=== PATIENT | male | born 1970 | race Caucasian/White ===

== ENCOUNTER 2017-04-20 11:55 | Emergency (ER) | payer OTHER ==
[~2017-04-20] VITALS: Ht 180.3 cm; Wt 105.0 kg
[~2017-04-20 11:55] MED LIST: AMLO2.5T2 PO; ATOR40TA78 PO; CETI10TA18 PO; LISI1TAB7 PO; METF500T4 PO; OMEP-110 PO; OMEP40CA6 PO; OXYC1TAB7 PO
[2017-04-20 12:00] VITALS: BP 142/97
[2017-04-20 13:36] LABS: HIV 1&2 ANTIBODY SCREEN Nonreactive (Nonreactive); HIV-1 p24 ANTIGEN Nonreactive (Nonreactive)
== END 2017-04-20 13:31 | disposition home or self-care (01) ==
LOC: ED 12:19
DX: Z00.8 Encounter for other general examination (principal); Z57.9 Occupational exposure to unspecified risk factor; E11.9 Type 2 diabetes mellitus without complications; I10 Essential (primary) hypertension
CPT/HCPCS: 36415; 86703; 86704; 86706; 86708; 86803; 87340; 87899; 99284; G0435

== ENCOUNTER 2018-01-17 08:22 | Emergency (ER) | payer OTHER ==
[~2018-01-17] VITALS: Ht 180.3 cm; Wt 105.0 kg
[2018-01-17 09:49] VITALS: BP 134/80
== END 2018-01-17 10:46 | disposition home or self-care (01) ==
LOC: ED 09:16
DX: S82.51XA Displaced fracture of medial malleolus of right tibia, initial encounter for closed fracture (principal); X58.XXXA Exposure to other specified factors, initial encounter; Y93.89 Activity, other specified; Y99.8 Other external cause status; Y92.69 Other specified industrial and construction area as the place of occurrence of the external cause
CPT/HCPCS: 29515; 99284

== ENCOUNTER → 2018-03-08 | Outpatient (CLI) | payer OTHER | END | disposition home or self-care (01) | LOC: LAB 12:06 | PROVIDERS: ATTEND Internal Medicine Hematology & Oncology | DX: Z11.4 Encounter for screening for human immunodeficiency virus [HIV] (principal) | CPT/HCPCS: 36415; 87806; G0475 ==

== ENCOUNTER 2018-05-24 11:08 | Emergency (ER) | payer OTHER ==
[~2018-05-24] VITALS: Ht 180.3 cm; Wt 103.5 kg
[~2018-05-24 11:08] MED LIST changes: -FLUTICASONE PROP; -HYDR12.53 PO; -LISI-167 PO; -METO50TA82 PO
[2018-05-24 11:14] VITALS: BP 143/106
[2018-05-24] MEDS ORDERED: HYDR12.53 PO (13:00)
[2018-05-24] MEDS ORDERED: METO50TA82 PO (13:00)
== END 2018-05-24 13:51 | disposition home or self-care (01) ==
LOC: ED 13:48
DX: K40.91 Unilateral inguinal hernia, without obstruction or gangrene, recurrent (principal); I10 Essential (primary) hypertension; E11.9 Type 2 diabetes mellitus without complications; G47.30 Sleep apnea, unspecified; Z88.6 Allergy status to analgesic agent
CPT/HCPCS: 76857; 99284

== ENCOUNTER → 2018-05-24 | Outpatient (CLI) | payer OTHER ==
[~2018-05-24] MED LIST changes: +FLUTICASONE PROP; +HYDR12.53 PO; +LISI-167 PO; -METF500T4 PO; +METF500T5 PO; +METO50TA82 PO
[2018-05-24 11:13] LABS: BASOPHILS # (AUTO) 0.04 x10^3/uL (0-0.1); BASOPHILS % (AUTO) 1 % (0-1); EOSINOPHILS # (AUTO) 0.08 x10^3/uL (0-0.4); EOSINOPHILS % (AUTO) 2 % (1-7); LYMPHOCYTES # (AUTO) 1.66 x10^3/uL (1-3.4); LYMPHOCYTES % (AUTO) 30 % (22-44); MD NO; MEAN CORPUSCULAR HEMOGLOBIN 30.5 pg (27.5-34.5); MEAN CORPUSCULAR HGB CONC 33.9 g/dL (33.2-36.2); MEAN CORPUSCULAR VOLUME 89.9 fL (81-97); MEAN PLATELET VOLUME 7.7 fL (7.4-10.4); MONOCYTES # (AUTO) 0.53 x10^3/uL (0.2-0.8); MONOCYTES % (AUTO) 9 % (2-9); NEUTROPHILS # (AUTO) 3.32 x10^3/uL (1.8-6.8); NEUTROPHILS % (AUTO) 59 % (42-75); PLATELET COUNT 251 x10^3/uL (130-400); RED BLOOD COUNT 5.09 x10^6/uL (4.38-5.82); RED CELL DISTRIBUTION WIDTH 13.1 % (9.4-14.8)
[2018-05-24 11:25] LABS: ALBUMIN 3.9 g/dL (3.4-5.0); ANION GAP 6 mmol/L (5-15); CALCIUM 8.6 mg/dL (8.5-10.1); CHLORIDE 111 mmol/L (98-107); CHOLESTEROL, TOTAL 228 mg/dL (140-239); TRIGLYCERIDES 85 mg/dL (50-200); VLDL CHOLESTEROL 17 mg/dL (0-25)
[2018-05-24 11:52] LABS: % IRON SATURATION 28 % (20-55); ALANINE AMINOTRANSFERASE 49 U/L (12-78); ALKALINE PHOSPHATASE 96 U/L (45-117); BILIRUBIN,TOTAL 0.5 mg/dL (0.2-1.0); CHOL/HDL RATIO 5.4; CREATININE 0.96 mg/dL (0.7-1.3); FOLATE LEVEL 14.4 ng/mL (3.1-17.5); FREE T4 (FREE THYROXINE) 1.04 ng/dL (0.76-1.46); HDL CHOL % 18 % (26-37); HDL CHOLESTEROL (DIRECT) 42 mg/dL (40-60); IRON LEVEL 108 mcg/dL (65-175); LDL CHOLESTEROL,CALCULATED 169 mg/dL (54-169); TOTAL IRON BINDING CAPACITY 387 mcg/dL (250-450); TOTAL PROTEIN 7.5 g/dL (6.4-8.2)
[2018-05-24 12:24] LABS: HEMOGLOBIN A1C 6.4 % (4.2-6.3)
== END | disposition home or self-care (01) ==
LOC: LAB 10:57
PROVIDERS: ATTEND Nurse Practitioner Family
DX: I10 Essential (primary) hypertension (principal)
CPT/HCPCS: 36415; 80053; 80061; 82306; 82607; 82728; 82746; 83036; 83540; 83550; 84439; 84443; 85025

== ENCOUNTER 2018-06-23 08:43 | Day surgery (SDC) | payer OTHER ==
[~2018-06-23] VITALS: Ht 180.3 cm; Wt 104.5 kg
[~2018-06-23 08:43] MED LIST changes: +BUPIVACAINE/PF-EPI 0.5% 1:200K ONE; +FLUTICASONE PROP; +HYDR12.53 PO; +LISI-167 PO; +METO50TA82 PO
[2018-06-23] MEDS ORDERED: LACTATED RINGERS 1,000 ML IV SCH (08:53)
[2018-06-23 08:59] VITALS: BP 158/108
[2018-06-23] MEDS ORDERED: ONDANSETRON ODT 8 MG PO ONE (09:00)
[2018-06-23] MEDS ORDERED: ACETAMINOPHEN 500 MG TABLET PO ONE (09:00)
[2018-06-23] MEDS ORDERED: GABAPENTIN 300 MG CAPSULE PO ONE (09:00)
[2018-06-23] MEDS ORDERED: OXYcodone IR 5MG TABLET PO ONE (09:00)
[2018-06-23] MEDS ORDERED: MIDAZOLAM 1 MG/ML, 2ML ONE (10:45)
[2018-06-23] MEDS ORDERED: FENTANYL PF 250 MCG/5ML ONE (10:46)
[2018-06-23] MEDS ORDERED: CEFAZOLIN 1,000 MG ONE ×2 (11:10)
[2018-06-23] MEDS ORDERED: ROCURONIUM 10MG/ML,5ML ONE (11:10)
[2018-06-23] MEDS ORDERED: ONDANSETRON 2MG/ML, 2ML ONE (11:10)
[2018-06-23] MEDS ORDERED: PROPOFOL 10 MG/ML, 20ML ONE (11:10)
[2018-06-23] MEDS ORDERED: ALBUTEROL SULFATE 2.5 MG/3 ML NPPB PRN (11:30)
[2018-06-23] MEDS ORDERED: HYDROmorphone 1 MG/ML, 1ML IV PRN (11:30)
[2018-06-23] MEDS ORDERED: hydrALAzine 20 MG/ML, 1ML IV PRN (11:30)
[2018-06-23] MEDS ORDERED: METOPROLOL 1 MG/ML, 5ML IV PRN (11:30)
[2018-06-23] MEDS ORDERED: ONDANSETRON 2MG/ML, 2ML IV PRN (11:30)
[2018-06-23] MEDS ORDERED: LABETALOL 5MG/ML, 20ML IV PRN (11:30)
[2018-06-23] MEDS ORDERED: EPHEDRINE 50 MG/ML, 1ML IVPush PRN (11:30)
[2018-06-23] MEDS ORDERED: PROMETHAZINE 25 MG/ML, 1ML IV PRN (11:30)
[2018-06-23] MEDS ORDERED: MEPERIDINE/PF 25MG/0.5ML IVPush PRN (11:30)
[2018-06-23] MEDS ORDERED: OXYcodone 5 MG/5 ML ORAL.SOL UDC PO PRN (11:30)
[2018-06-23] MEDS ORDERED: NEOSTIGMINE 1 MG/ML, 10ML ONE (12:44)
[2018-06-23] MEDS ORDERED: GLYCOPYRROLATE 0.4 MG/2 ML, 2ML ONE (12:44)
[2018-06-23] MEDS ORDERED: FENTANYL PF 100 MCG/2ML ONE (13:05)
[2018-06-23] MEDS: FENTANYL PF 100 MCG/2ML IV PRN ×2 (13:07→13:15)
[2018-06-23] MEDS ORDERED: OXYcodone 5 MG/5 ML ORAL.SOL UDC ONE (13:21)
[2018-06-23] MEDS ORDERED: MEPERIDINE/PF 50 MG/ML ONE (13:26)
== END 2018-06-23 15:50 | disposition home or self-care (01) ==
LOC: OUT 08:43
PROVIDERS: ATTEND Surgery
DX: K40.91 Unilateral inguinal hernia, without obstruction or gangrene, recurrent (principal); K21.9 Gastro-esophageal reflux disease without esophagitis; I10 Essential (primary) hypertension; E66.9 Obesity, unspecified; Z88.6 Allergy status to analgesic agent
CPT/HCPCS: 49651; J0690; J2175; J2250; J2405; J2704; J2710; J3010; J7120; Q0162; S2900; C1781

== ENCOUNTER 2018-09-30 07:39 | Emergency (ER) | payer OTHER ==
[~2018-09-30] VITALS: Ht 180.3 cm; Wt 113.5 kg
[~2018-09-30 07:39] MED LIST changes: -BUPIVACAINE/PF-EPI 0.5% 1:200K ONE; +METF500T17 PO; -METF500T5 PO
[2018-09-30] MEDS ORDERED: BACITRACIN ZINC OINT 500U/GM, 0.9 GM ONE (08:39)
[2018-09-30 09:25] VITALS: BP 134/90
== END 2018-09-30 09:27 | disposition home or self-care (01) ==
LOC: ED 09:16
DX: S61.552A Open bite of left wrist, initial encounter (principal); S50.812A Abrasion of left forearm, initial encounter; S60.312A Abrasion of left thumb, initial encounter; I10 Essential (primary) hypertension; E11.9 Type 2 diabetes mellitus without complications; W50.3XXA Accidental bite by another person, initial encounter; Y93.89 Activity, other specified; Y92.69 Other specified industrial and construction area as the place of occurrence of the external cause; Y99.8 Other external cause status
CPT/HCPCS: 99283

== ENCOUNTER 2019-09-30 13:52 | Emergency (ER) | payer OTHER ==
[~2019-09-30] VITALS: Ht 180.3 cm; Wt 114.0 kg
[~2019-09-30 13:52] MED LIST changes: +HYDR12.517 PO; -HYDR12.53 PO; +LISI1TAB20 PO; -LISI1TAB7 PO; +OMEP40CA42 PO; -OMEP40CA6 PO
[2019-09-30 14:09] VITALS: BP 177/115
[2019-09-30] MEDS ORDERED: DEXAMETHASONE 4 MG TABLET PO ONE (15:30)
[2019-09-30] MEDS ORDERED: PROMETHAZINE/COD. 10MG/6.25MG/5 ML ORAL SOL PO ONE (15:30)
[2019-09-30] MEDS ORDERED: DEXAMETHASONE 4 MG TABLET ONE (15:52)
== END 2019-09-30 16:15 | disposition home or self-care (01) ==
LOC: ED 16:10
DX: J04.0 Acute laryngitis (principal); B97.89 Other viral agents as the cause of diseases classified elsewhere; I10 Essential (primary) hypertension; F17.210 Nicotine dependence, cigarettes, uncomplicated
CPT/HCPCS: 71045; 99283

== ENCOUNTER 2019-11-29 14:51 | Emergency (ER) | payer OTHER ==
[~2019-11-29] VITALS: Ht 180.3 cm; Wt 112.5 kg
[2019-11-29 14:56] VITALS: BP 147/111
--- NOTE | 2019-11-29 15:14 | NUR ---
SORE THROAT, HOARSE, PAIN, SINUS CONGESTION FOR A MONTH. IMPROVED FOR A WHILE AND THEN GOT WORSE.
== END 2019-11-29 15:24 | disposition home or self-care (01) ==
LOC: ED 15:13
DX: H65.01 Acute serous otitis media, right ear (principal); J00 Acute nasopharyngitis [common cold]; I10 Essential (primary) hypertension
CPT/HCPCS: 99283

== ENCOUNTER 2020-01-06 14:49 | Emergency (ER) | payer OTHER ==
[2020-01-06 14:52] VITALS: BP 163/97
[2020-01-06] MEDS ORDERED: ACETAMINOPHEN 500 MG TABLET ONE (15:22)
[2020-01-06 15:30] LABS: RAPID INFLUENZA A Negative (Negative); RAPID INFLUENZA B Negative (Negative)
[2020-01-06] MEDS ORDERED: ACETAMINOPHEN 500 MG TABLET PO ONE (15:30)
== END 2020-01-06 15:54 | disposition home or self-care (01) ==
LOC: ED 15:40
DX: J18.0 Bronchopneumonia, unspecified organism (principal); I10 Essential (primary) hypertension; E11.9 Type 2 diabetes mellitus without complications; R19.7 Diarrhea, unspecified; Z87.891 Personal history of nicotine dependence; Z90.89 Acquired absence of other organs
CPT/HCPCS: 71046; 87400; 99284

== ENCOUNTER 2020-05-05 07:22 | Outpatient (CLI) | payer OTHER ==
[2020-05-05 07:48] LABS: BASOPHILS # (AUTO) 0.04 x10^3/uL (0-0.1); BASOPHILS % (AUTO) 1 % (0-1); EOSINOPHILS # (AUTO) 0.13 x10^3/uL (0-0.4); EOSINOPHILS % (AUTO) 2 % (1-7); LYMPHOCYTES # (AUTO) 1.55 x10^3/uL (1-3.4); LYMPHOCYTES % (AUTO) 28 % (22-44); MD NO; MEAN CORPUSCULAR HEMOGLOBIN 31.4 pg (27.5-34.5); MEAN CORPUSCULAR HGB CONC 33.7 g/dL (33.2-36.2); MEAN CORPUSCULAR VOLUME 93.3 fL (81-97); MEAN PLATELET VOLUME 7.8 fL (7.4-10.4); MONOCYTES # (AUTO) 0.49 x10^3/uL (0.2-0.8); MONOCYTES % (AUTO) 9 % (2-9); NEUTROPHILS # (AUTO) 3.39 x10^3/uL (1.8-6.8); NEUTROPHILS % (AUTO) 61 % (42-75); PLATELET COUNT 248 x10^3/uL (130-400); RED BLOOD COUNT 4.78 x10^6/uL (4.38-5.82); RED CELL DISTRIBUTION WIDTH 12.1 % (9.4-14.8)
[2020-05-05 07:50] LABS: ALBUMIN 3.4 g/dL (3.4-5.0); CALCIUM 8.5 mg/dL (8.5-10.1); CHOLESTEROL, TOTAL 212 mg/dL (140-239); TOTAL IRON BINDING CAPACITY 331 mcg/dL (250-450)
[2020-05-05 08:08] LABS: ANION GAP 9 mmol/L (5-15); CHLORIDE 107 mmol/L (98-107)
[2020-05-05 08:17] LABS: % IRON SATURATION 25 % (20-55); ALANINE AMINOTRANSFERASE 35 U/L (12-78); ALKALINE PHOSPHATASE 88 U/L (45-117); BILIRUBIN,TOTAL 0.4 mg/dL (0.2-1.0); CHOL/HDL RATIO 5.9; CREATININE 0.89 mg/dL (0.7-1.3); HDL CHOL % 17 % (26-37); HDL CHOLESTEROL (DIRECT) 36 mg/dL (40-60); IRON LEVEL 82 mcg/dL (65-175); LDL CHOLESTEROL,CALCULATED 137 mg/dL (54-169); LDL/HDL RATIO 3.8 (0.5-3.0); PREALBUMIN 20.8 mg/dL (20.0-40.0); TOTAL PROTEIN 7.1 g/dL (6.4-8.2); TRIGLYCERIDES 197 mg/dL (50-200); VLDL CHOLESTEROL 39 mg/dL (0-25)
[2020-05-05 08:23] LABS: FOLATE LEVEL > 20.0 ng/mL (3.1-17.5)
== END 2020-05-05 23:59 | disposition home or self-care (01) ==
LOC: LAB 07:22
PROVIDERS: ATTEND Physician Assistant
DX: E11.9 Type 2 diabetes mellitus without complications (principal); E78.5 Hyperlipidemia, unspecified; E55.9 Vitamin D deficiency, unspecified; E63.9 Nutritional deficiency, unspecified; E56.9 Vitamin deficiency, unspecified; K90.9 Intestinal malabsorption, unspecified; Z98.84 Bariatric surgery status
CPT/HCPCS: 36415; 80053; 80061; 82306; 82607; 82728; 82746; 83036; 83540; 83550; 84134; 84425; 85025

== ENCOUNTER → 2021-02-02 | Outpatient (CLI) | payer OTHER ==
[2021-02-02 07:23] LABS: BASOPHILS % (AUTO) 1 % (0-1); EOSINOPHILS % (AUTO) 2 % (1-7); LYMPHOCYTES % (AUTO) 26 % (22-44); MD NO; MEAN CORPUSCULAR HEMOGLOBIN 31.1 pg (27.5-34.5); MEAN CORPUSCULAR HGB CONC 33.9 g/dL (33.2-36.2); MEAN PLATELET VOLUME 7.8 fL (7.4-10.4); MONOCYTES % (AUTO) 9 % (2-9); NEUTROPHILS % (AUTO) 62 % (42-75); PLATELET COUNT 249 x10^3/uL (130-400); RED BLOOD COUNT 4.81 x10^6/uL (4.38-5.82)
[2021-02-02 07:34] LABS: ALBUMIN 3.6 g/dL (3.4-5.0); ANION GAP 6 mmol/L (5-15); CALCIUM 8.4 mg/dL (8.5-10.1); CHLORIDE 107 mmol/L (98-107); CHOLESTEROL, TOTAL 228 mg/dL (140-239); TRIGLYCERIDES 303 mg/dL (50-200); VLDL CHOLESTEROL 61 mg/dL (0-25)
[2021-02-02 08:01] LABS: % IRON SATURATION 29 % (20-55); ALANINE AMINOTRANSFERASE 59 U/L (12-78); ALKALINE PHOSPHATASE 90 U/L (45-117); BILIRUBIN,TOTAL 0.4 mg/dL (0.2-1.0); CHOL/HDL RATIO 7.1; CREATININE 0.98 mg/dL (0.7-1.3); HDL CHOL % 14 % (26-37); HDL CHOLESTEROL (DIRECT) 32 mg/dL (40-60); IRON LEVEL 101 mcg/dL (65-175); LDL CHOLESTEROL,CALCULATED 135 mg/dL (54-169); LDL/HDL RATIO 4.2 (0.5-3.0); PREALBUMIN 23.2 mg/dL (20.0-40.0); TOTAL IRON BINDING CAPACITY 351 mcg/dL (250-450); TOTAL PROTEIN 7.3 g/dL (6.4-8.2)
[2021-02-02 08:05] LABS: FOLATE LEVEL > 20.0 ng/mL (3.1-17.5)
== END | disposition home or self-care (01) ==
LOC: LAB 07:02
PROVIDERS: ATTEND Physician Assistant
DX: E55.9 Vitamin D deficiency, unspecified (principal); E63.9 Nutritional deficiency, unspecified; E56.9 Vitamin deficiency, unspecified; E78.5 Hyperlipidemia, unspecified; K90.9 Intestinal malabsorption, unspecified; Z98.84 Bariatric surgery status
CPT/HCPCS: 36415; 80053; 80061; 82306; 82607; 82728; 82746; 83036; 83540; 83550; 83970; 84134; 84425; 85025

== ENCOUNTER 2021-04-28 19:04 | Emergency (ER) | payer OTHER ==
[~2021-04-28] VITALS: Ht 180.3 cm; Wt 114.5 kg
[~2021-04-28 19:04] MED LIST changes: -OMEP40CA42 PO; +OMEP40CA8 PO
[2021-04-28 19:14] VITALS: BP 154/100
--- NOTE | 2021-04-28 19:31 | NUR ---
pt ambulatory to room from triage.
--- NOTE | 2021-04-28 19:58 | NUR ---
PT STATES HE LEFT WORK AND DEVELOPED L GROIN PAIN, RAD TO LLQ. DENIES ANY HEMATURIA. PT STATES HES HAD HERNIA REPAIR IN PAST & FEELS THE SAME. PT CHANGING. WILL CTM.
== END 2021-04-28 21:05 | disposition home or self-care (01) ==
LOC: ED 19:34
DX: N43.3 Hydrocele, unspecified (principal); M25.511 Pain in right shoulder; I10 Essential (primary) hypertension; E11.9 Type 2 diabetes mellitus without complications; Z87.891 Personal history of nicotine dependence; Z88.6 Allergy status to analgesic agent; Z90.89 Acquired absence of other organs
CPT/HCPCS: 76870; 99284

== ENCOUNTER → 2021-06-04 | Outpatient (CLI) | payer OTHER | END | disposition home or self-care (01) | LOC: RAD 07:52 | PROVIDERS: ATTEND Physician Assistant Surgical | DX: M51.16 Intervertebral disc disorders with radiculopathy, lumbar region (principal); M53.3 Sacrococcygeal disorders, not elsewhere classified; M41.86 Other forms of scoliosis, lumbar region | CPT/HCPCS: 72110 ==

== ENCOUNTER → 2021-07-03 | Outpatient (CLI) | payer OTHER ==
[~2021-07-03] MED LIST changes: +OMNIPAQUE 350 MG/ML, 150 ML BOTTLE ONE
== END | disposition home or self-care (01) ==
LOC: RAD 07:48
PROVIDERS: ATTEND Physician Assistant
DX: K43.9 Ventral hernia without obstruction or gangrene (principal); N43.3 Hydrocele, unspecified; I86.1 Scrotal varices
CPT/HCPCS: 74177; Q9967

== ENCOUNTER 2021-07-23 16:45 | Outpatient (CLI) | payer OTHER ==
[~2021-07-23 16:45] MED LIST changes: -OMNIPAQUE 350 MG/ML, 150 ML BOTTLE ONE
== END 2021-07-23 23:59 | disposition home or self-care (01) ==
LOC: RAD 16:45
PROVIDERS: ATTEND Orthopaedic Surgery
DX: M51.17 Intervertebral disc disorders with radiculopathy, lumbosacral region (principal); M48.061 Spinal stenosis, lumbar region without neurogenic claudication
CPT/HCPCS: 72148